=== PATIENT | male | born 1955 | race Caucasian/White ===

== ENCOUNTER 2016-04-23 13:14 | Emergency (ER) | payer OTHER | END 2016-04-23 15:00 | disposition home or self-care (01) | LOC: ER1 13:14 | DX: S01.01XA Laceration without foreign body of scalp, initial encounter (principal); W45.0XXA Nail entering through skin, initial encounter; Y92.009 Unspecified place in unspecified non-institutional (private) residence as the place of occurrence of the external cause; Z23 Encounter for immunization | CPT/HCPCS: 12001; 90471; 90714; 99283 ==

== ENCOUNTER 2021-03-03 01:15 | Inpatient (IN) | payer MEDICARE, OTHER ==
[~2021-03-03] VITALS: Ht 182.9 cm; Wt 106.1 kg
[2021-03-03 01:56] LABS: RED BLOOD COUNT 4.37 M/UL (4.20-5.50); WHITE BLOOD COUNT 13.6 K/UL (4.5-11.0)
[2021-03-03 02:26] LABS: BUN/CREATININE RATIO 24 (0-10)
[2021-03-03] MEDS ORDERED: ZOFRAN ODT 4 MG4 MG PO (09:10)
[2021-03-03] MEDS ORDERED: AUGMENTIN 875-1 EACH PO (09:10)
[2021-03-03] MEDS ORDERED: ENDOCET 5-3251 EACH PO (09:11)
[2021-03-03] MEDS ORDERED: TENORETIC 50 T1 EACH PO (09:11)
[2021-03-03] MEDS ORDERED: PROTONIX 40 MG40 M1 PO (09:11)
[2021-03-03] MEDS ORDERED: CRESTOR40 MG PO (09:12)
[2021-03-04 03:53] LABS: HEMOGLOBIN 12.9 gm/dl (14.0-17.5); RED BLOOD COUNT 4.09 M/UL (4.20-5.50); WHITE BLOOD COUNT 12.5 K/UL (4.5-11.0)
[2021-03-04 04:14] LABS: BUN/CREATININE RATIO 20 (0-10)
[2021-03-05 06:52] LABS: HEMOGLOBIN 11.8 gm/dl (14.0-17.5); RED BLOOD COUNT 3.79 M/UL (4.20-5.50)
[2021-03-05 06:55] LABS: WHITE BLOOD COUNT 9.1 K/UL (4.5-11.0)
[2021-03-05 07:40] LABS: BUN/CREATININE RATIO 20 (0-10)
--- NOTE | 2021-03-05 11:06 | NUR ---
PT ASSISTED AND AMBULATED IN THE HALLWAY WITH STAND BY ASSIST, TOLERATED WELL
== END 2021-03-06 13:29 | disposition home or self-care (01) | DRG 419 ==
LOC: ER1 01:15 → CDU 06:07 → M/S 06:07 → 3 EAST 09:05 → M/S 03-04 18:18
PROVIDERS: Physician Assistant; ADMIT Surgery
PROC: 5A09457 Assistance with Respiratory Ventilation, 24-96 Consecutive Hours, Continuous Positive Airway Pressure (ICD-10-PCS; principal; 2021-03-03)
PROC: 0FT44ZZ Resection of Gallbladder, Percutaneous Endoscopic Approach (ICD-10-PCS; 2021-03-04)
DX: K81.0 Acute cholecystitis (principal); E78.5 Hyperlipidemia, unspecified; Z20.822 Contact with and (suspected) exposure to COVID-19; K82.A1 Gangrene of gallbladder in cholecystitis; E78.00 Pure hypercholesterolemia, unspecified; I10 Essential (primary) hypertension; E87.6 Hypokalemia; Z90.49 Acquired absence of other specified parts of digestive tract; Z88.5 Allergy status to narcotic agent
CPT/HCPCS: 36415; 80053; 81001; 82140; 82150; 83605; 83690; 84132; 85025; 87086; 93005; 94660; 94760; 96374; 96375; 99285; C1729; G0480; J1100; J2001; J2270; J2405; J2543; J2704; J2710; J3010; J3480; J7030; J7120; Q9967; U0002